=== PATIENT | female | born 1955 | race Caucasian/White ===

== ENCOUNTER 2017-11-21 09:53 | Day surgery (SDC) | payer MEDICARE ==
[~2017-11-21 09:53] MED LIST: AMLODIPINE5 MG PO; ASPIRIN EC325 MG PO; AUGMENTIN875TAB PO; BACLOFEN10 MG PO; EQL POTASSIUM595 MG PO; ETODOLAC500 MG OR; FISH OIL1000 MG OR; GABAPENTIN100 MG PO; GABAPENTIN300 MG PO; GARLIC OR; GINKGO BILOBA500 MG PO; GLIMEPIRIDE2 MG PO; GLUCOSAMINE1 TA1 OR; LIPITOR10 MG PO; LISINOPRIL10 MG PO; LISINOPRIL2.5 MG PO; MECLIZINE25 MG PO; MEDDOSEPAK PO; METFORMIN500 M1 PO; METFORMIN500 MG OR; METFORMIN850 MG PO; METHOCARBAMOL500 MG PO; MULTIVIT/MIN OR; NAPROSYN500 MG PO; NOVOLIN N100 UNIT/1 SC; NOVOLIN R100 UNIT/M SC; OCUVIT1 PO; ONE TOUCH ULTRA 100; OXYCODONE HCL5 MG PO; OXYCODONE5 MG PO; RANITIDINE75 M3 PO; ROPINIROLE0.25 MG OR; ROPINIROLE0.25 MG PO; ROPINIROLE0.5 MG PO; ROPINIROLE2 MG PO; TIZANIDINE4 MG PO; TOUJEO SOL300 UNIT/M SC; TRAMADOL HCL50 MG PO; TURMERIC CURCU500 MG PO; UNKNOWN INSULIN; [UNRECOGNIZED DRUG - CODE] XX; [UNRECOGNIZED DRUG - OTHER]; [UNRECOGNIZED DRUG - OTHER]; [UNRECOGNIZED DRUG - OTHER] PO
[2017-11-21 16:17] VITALS: BP 194/114
== END 2017-11-21 10:55 | disposition home or self-care (01) ==
LOC: ENDO 09:53
PROVIDERS: ATTEND Internal Medicine Gastroenterology
DX: Z01.818 Encounter for other preprocedural examination (principal); R25.2 Cramp and spasm; Z53.8 Procedure and treatment not carried out for other reasons

== ENCOUNTER 2017-11-21 10:54 | Emergency (ER) | payer MEDICARE ==
[~2017-11-21] VITALS: Ht 170.2 cm; Wt 129.0 kg
[2017-11-21 11:32] LABS: HEMATOCRIT 36.6 % (37.0-47.0); HEMOGLOBIN 10.7 g/dl (12.0-16.0); IMMATURE GRANULOCYTES 0.4 % (0.0-1.0); MEAN CELL VOLUME 74.1 fL CALC (80.0-100.0); MEAN CORPUSCULAR HGB 21.7 pG CALC (26.0-32.0); MEAN CORPUSCULAR HGB CONC 29.2 g/L CALC (32.0-36.0); NEUT# 8.84 thou/uL (2.00-7.15); RED BLOOD COUNT 4.94 mill/uL (4.20-5.60); RED CELL DISTRI WIDTH 20.3 % (11.5-15.5)
[2017-11-21 11:48] LABS: ALBUMIN 4.3 g/dL (3.2-5.0); ALKALINE PHOSPHATASE 122 u/l (38-126); ANION GAP 19 (6-22 (CALC)); BILIRUBIN, TOTAL 0.9 mg/dL (0.0-1.4); BUN 8 mg/dL (8-23); BUN/CREATININE RATIO 10 (12-20 (CALC)); CARBON DIOXIDE 27 mmol/l (22-30); CHLORIDE 102 mmol/l (95-108); CREATININE 0.8 mg/dL (0.5-1.0); GFR > 60 ML/MIN (>=60 (CALC)); GFR FOR AFR.AMER. > 60 ML/MIN (>=60 (CALC)); GLUCOSE 124 mg/dL (82-115); POTASSIUM 4.3 mmol/l (3.5-5.1); SGOT/AST 61 u/l (9-36); SGPT/ALT 49 u/l (11-66); SODIUM 143 mmol/l (137-146); TOTAL PROTEIN 7.4 g/dL (6.3-8.2)
[2017-11-21 11:57] LABS: MYOGLOBIN 105 ng/mL (0 - 62)
[2017-11-21 12:39] LABS: URINE BILIRUBIN - DIPSTICK NEGATIVE (NEGATIVE); URINE BLOOD DIPSTICK NEGATIVE (NEGATIVE); URINE COLOR YELLOW; URINE GLUCOSE - DIPSTICK NEGATIVE (NEGATIVE); URINE KETONE 40 mg/dL (NEGATIVE); URINE LEUK ESTERASE NEGATIVE (NEGATIVE); URINE NITRITE - DIPSTICK NEGATIVE (Negative); URINE PH 7.5 (4.5-8.0); URINE PROTEIN - DIPSTICK NEGATIVE (NEG-TRACE); URINE UROBILINOGEN - DIPSTICK 0.2 E.U./dL (0.2)
[2017-11-21 12:43] LABS: URINE CLARITY SL CLOUDY
[2017-11-21 12:44] LABS: BARBITURATES NEGATIVE (NEGATIVE); COCAINE NEGATIVE (NEGATIVE); METHADONE NEGATIVE (NEGATIVE); OXCYCODONE POSITIVE (NEGATIVE); TETRAHYDROCANNABIONOL NEGATIVE (NEGATIVE); TRICYLIC ANTIDEPRESSANTS NEGATIVE (NEGATIVE)
[2017-11-21 12:53] VITALS: BP 148/70
== END 2017-11-21 12:55 | disposition home or self-care (01) ==
LOC: ED 10:54
PROVIDERS: Emergency Medicine
DX: I10 Essential (primary) hypertension (principal); R25.2 Cramp and spasm; R00.0 Tachycardia, unspecified
CPT/HCPCS: J3360

== ENCOUNTER 2018-04-04 01:48 | Emergency (ER) | payer MEDICARE ==
[~2018-04-04] VITALS: Ht 170.2 cm; Wt 129.0 kg
[2018-04-04 02:29] LABS: IMMATURE GRANULOCYTES 0.3 % (0.0-1.0); MEAN CORPUSCULAR HGB 25.9 pG CALC (26.0-32.0); MEAN CORPUSCULAR HGB CONC 31.2 g/L CALC (32.0-36.0); NEUT# 7.21 thou/uL (2.00-7.15); RED BLOOD COUNT 5.18 mill/uL (4.20-5.60); RED CELL DISTRI WIDTH 18.5 % (11.5-15.5)
[2018-04-04 02:30] LABS: HEMOGLOBIN 13.4 g/dl (12.0-16.0)
[2018-04-04 02:40] LABS: ALBUMIN 4.3 g/dL (3.2-5.0); ALKALINE PHOSPHATASE 155 u/l (38-126); AMYLASE 47 u/l (30-110); ANION GAP 16 (6-22 (CALC)); BILIRUBIN, TOTAL 0.8 mg/dL (0.0-1.4); BUN 18 mg/dL (8-23); BUN/CREATININE RATIO 26 (12-20 (CALC)); CARBON DIOXIDE 27 mmol/l (22-30); CHLORIDE 100 mmol/l (95-108); CREATININE 0.7 mg/dL (0.5-1.0); GFR > 60 ML/MIN (>=60 (CALC)); GFR FOR AFR.AMER. > 60 ML/MIN (>=60 (CALC)); LIPASE 80 u/l (23-300); POTASSIUM 4.4 mmol/l (3.5-5.1); SGOT/AST 55 u/l (9-36); SGPT/ALT 76 u/l (11-66); SODIUM 138 mmol/l (137-146); TOTAL PROTEIN 8.6 g/dL (6.3-8.2)
[2018-04-04 04:27] LABS: URINE BILIRUBIN - DIPSTICK NEGATIVE (NEGATIVE); URINE BLOOD DIPSTICK SMALL (NEGATIVE); URINE COLOR YELLOW; URINE GLUCOSE - DIPSTICK 100 mg/dL (NEGATIVE); URINE KETONE TRACE mg/dL (NEGATIVE); URINE LEUK ESTERASE NEGATIVE (NEGATIVE); URINE NITRITE - DIPSTICK NEGATIVE (Negative); URINE PROTEIN - DIPSTICK 30 mg/dL (NEG-TRACE); URINE UROBILINOGEN - DIPSTICK 0.2 E.U./dL (0.2)
[2018-04-04 04:29] LABS: URINE CLARITY TURBID
[2018-04-04 04:31] LABS: BARBITURATES NEGATIVE (NEGATIVE); COCAINE NEGATIVE (NEGATIVE); METHADONE NEGATIVE (NEGATIVE); OXCYCODONE POSITIVE (NEGATIVE); TETRAHYDROCANNABIONOL NEGATIVE (NEGATIVE); TRICYLIC ANTIDEPRESSANTS NEGATIVE (NEGATIVE); URINE AMORPH SEDIMENT MANY hpf (NONE-FEW); URINE BACTERIA FEW hpf; URINE MUCUS FEW hpf (NONE-FEW); URINE RBC 0-2 RBC/hpf (0-5); URINE SQUAMOUS EPITHELIAL CELL MANY EPI/hpf (0-FEW); URINE WBC 0-2 WBC/hpf (0-5)
[2018-04-04] MEDS ORDERED: AMITRIPTYLIN25 MG PO (05:29)
[2018-04-04 05:30] VITALS: BP 200/94
== END 2018-04-04 05:30 | disposition short-term general hospital (02) ==
LOC: ED 01:48
PROVIDERS: Family Medicine
DX: K43.6 Other and unspecified ventral hernia with obstruction, without gangrene (principal); R11.0 Nausea; R10.33 Periumbilical pain; I10 Essential (primary) hypertension; E11.9 Type 2 diabetes mellitus without complications; Z79.4 Long term (current) use of insulin; M79.7 Fibromyalgia
CPT/HCPCS: J2060; Q9967

== ENCOUNTER 2019-06-15 06:41 | Day surgery (SDC) | payer MEDICARE ==
[~2019-06-15] VITALS: Ht 170.2 cm; Wt 114.8 kg
[~2019-06-15 06:41] MED LIST changes: +AMITRIPTYLIN25 MG PO; +CYCLOBENZAPR10 MG PO
[2019-06-15 09:16] VITALS: BP 136/70
== END 2019-06-15 09:45 | disposition home or self-care (01) ==
LOC: ENDO 06:41
PROVIDERS: ATTEND Surgery
PROC: 0DBK8ZX Excision of Ascending Colon, Via Natural or Artificial Opening Endoscopic, Diagnostic (ICD-10-PCS; principal; 2019-06-15)
PROC: 0DBL8ZX Excision of Transverse Colon, Via Natural or Artificial Opening Endoscopic, Diagnostic (ICD-10-PCS; 2019-06-15)
PROC: 0DBN8ZX Excision of Sigmoid Colon, Via Natural or Artificial Opening Endoscopic, Diagnostic (ICD-10-PCS; 2019-06-15)
DX: Z12.11 Encounter for screening for malignant neoplasm of colon (principal); D12.2 Benign neoplasm of ascending colon; D12.3 Benign neoplasm of transverse colon; K63.5 Polyp of colon; I10 Essential (primary) hypertension; E11.9 Type 2 diabetes mellitus without complications; F17.210 Nicotine dependence, cigarettes, uncomplicated; Z79.4 Long term (current) use of insulin

== ENCOUNTER 2019-09-20 00:25 | Observation (INO) | payer MEDICARE ==
[~2019-09-20] VITALS: Ht 170.2 cm; Wt 125.6 kg
--- NOTE | 2019-09-20 00:25 | NUR ---
PER EMS PT CALLS THEM WHEN SHE NEEDS ASSIST TO HER CHAIR OR BED.NO FOCALWEAKNESSES SPEECH IS CLEAR NO MEMORY DEFICITS PT IS MORBIDLY OBESE.BERY POOR HYGIENE FEET ARE DIRTY.
--- NOTE | 2019-09-20 00:25 | NUR ---
PT TO ROOM 13 BY EMS.
[2019-09-20 00:51] LABS: HEMATOCRIT 38.5 % (37.0-47.0); HEMOGLOBIN 11.9 g/dl (12.0-16.0); IMMATURE GRANULOCYTES 0.5 % (0.0-5.0); MEAN CORPUSCULAR HGB 28.1 pG CALC (26.0-32.0); MEAN CORPUSCULAR HGB CONC 30.9 g/L CALC (32.0-36.0); NEUT# 5.46 thou/uL (2.00-7.15); RED BLOOD COUNT 4.24 mill/uL (4.20-5.60); RED CELL DISTRI WIDTH 15.3 % (11.5-15.5)
[2019-09-20 00:53] LABS: MEAN CELL VOLUME 90.8 fL CALC (80.0-100.0)
[2019-09-20 01:08] LABS: ALBUMIN 3.7 g/dL (3.2-5.0); ALKALINE PHOSPHATASE 104 u/l (38-126); ANION GAP 13 (6-22 (CALC)); BUN 20 mg/dL (8-23); BUN/CREATININE RATIO 19 (12-20 (CALC)); CARBON DIOXIDE 25 mmol/l (22-30); CHLORIDE 108 mmol/l (95-108); CPK 57 u/l (30-165); GFR 56 ML/MIN (>=60 (CALC)); GFR FOR AFR.AMER. > 60 ML/MIN (>=60 (CALC)); MAGNESIUM 1.9 mg/dL (1.6-2.3); SGOT/AST 45 u/l (9-36); SODIUM 142 mmol/l (137-146)
[2019-09-20 01:10] LABS: BILIRUBIN, TOTAL 0.4 mg/dL (0.0-1.4); TOTAL PROTEIN 6.8 g/dL (6.3-8.2)
[2019-09-20 01:40] LABS: TSH, 3RD GENERATION 2.01 uIU/mL (0.47 - 4.68)
--- NOTE | 2019-09-20 01:47 | NUR ---
AWAKENED FROM SLEEP NO FOCAL DEFICITS.SPEECH IS CLEAR [facility] IS 15
--- NOTE | 2019-09-20 02:26 | NUR ---
14F ESPINOSA CATHETER INSERTED WITH ASSISTANCE OF ELVA GIL. PT SLEPT THRU THE ENTIRE PROCEDURE. WOKE PT AND ASKED IF SHE TAKES PAIN MEDICATION, PT STATED GABAPENTIN AND ANOTHER MEDICATION I COULD NOT UNDERSTAND. PT'S PERIAREA HAS A POTENT UNPLEASANT ODOR.
[2019-09-20 02:31] LABS: URINE BILIRUBIN - DIPSTICK NEGATIVE (NEGATIVE); URINE BLOOD DIPSTICK NEGATIVE (NEGATIVE); URINE COLOR YELLOW; URINE GLUCOSE - DIPSTICK NEGATIVE (NEGATIVE); URINE KETONE NEGATIVE (NEGATIVE); URINE LEUK ESTERASE NEGATIVE (NEGATIVE); URINE NITRITE - DIPSTICK NEGATIVE (Negative); URINE PROTEIN - DIPSTICK NEGATIVE (NEG-TRACE); URINE SPECIFIC GRAVITY >=1.030; URINE UROBILINOGEN - DIPSTICK 0.2 E.U./dL (0.2)
[2019-09-20 02:35] LABS: COCAINE NEGATIVE (NEGATIVE); METHADONE NEGATIVE (NEGATIVE); TETRAHYDROCANNABIONOL NEGATIVE (NEGATIVE)
[2019-09-20 02:36] LABS: BARBITURATES NEGATIVE (NEGATIVE); OXCYCODONE NEGATIVE (NEGATIVE); TRICYLIC ANTIDEPRESSANTS POSITIVE (NEGATIVE)
--- NOTE | 2019-09-20 03:31 | NUR ---
ASLEEP APPARENTLY COMFORTABLY.W/P/D SKIN SR NO ECTOPY
--- NOTE | 2019-09-20 04:07 | NUR ---
ASLEEP.W/P/D SKIN SR WITHOUT ECTOPY.
--- NOTE | 2019-09-20 04:10 | NUR ---
PHONE REPORT TO NURSE NUÑEZ ON MS2
--- NOTE | 2019-09-20 04:15 | NUR ---
PT TRANSPORTED TO IN VIA STRETCHER IN STABLE CONDITION
[2019-09-20 04:30] VITALS: BP 113/65
--- NOTE | 2019-09-20 04:30 | NUR ---
RECEIVED REPORT FROM ED NURSE AG, PATIENT TRANSPORTED VIA BED, ASSISTED IN BED USING 4 PERSON ASSIST, WITH O2 @ 2LPM VIA NC, NOTED TO HAVE NON PRODUCTIVE COUGH, COARSE ON ALL LUNG FIELD, LBM 09/19, NOTED TO HAVE SCATTERED BRUISES ON BILATERAL LOWER LEGS, AND BRUISING ON ABDOMEN, AND LEFT ANTERIOR SHOULDER, SKIN TEAR ON LEFT PINKY CLEANED WITH SALINE AND COVERED WITH BAND AID, ABRASIONS ON BOTH KNEE, AND WITH ESPINOSA F16 DRAINING SHELLI COLORED URINE INSERTED ON 09/20 AT ED, CALL LIGHT AT REACH.
--- NOTE | 2019-09-20 05:52 | NUR ---
CALLED ED DOCTOR KENNETH PATIENT STILL C/O CRAMPING PAIN ON LEFT LEG, APPLIED WARM COMPRESS, WITH ORDERS MADE SENT TO PHARMACY.
--- NOTE | 2019-09-20 07:30 | NUR ---
REPORT RECEIVED FROM ELVA ROMO. PT. ALERT AND ORIENTED, BUT FORGETFUL. CALLING OUT REPEATEDLY REGARDING VARIOUS THINGS, "I NEED TO PEE", "I HAVE A LEG CRAMP" "IS ANYONE THERE?". PT REMINDED OF ESPINOSA CATHETER. ESPINOSA DRAINAGE BLOOD THINGED, PT INSTRUCTED NOT TO TUG ON OR REMOVE ESPINOSA CATHETER. FALL PRECAUTIONS REINFORCED. MOIST COUGH NOTED, LUNGS SOUND CLEAR. O2 @ 2L VIA NC. SCATTERED ABRASIONS AND BRUISING TO ALL EXTREMITIES, NOTHING OPEN. CALL LIGHT REVIEWED AND IN REACH. PLAN OF CARE REVIEWED.
[2019-09-20 08:00] VITALS: BP 148/91
[2019-09-20 12:28] LABS: MAGNESIUM 1.9 mg/dL (1.6-2.3)
[2019-09-20 15:21] VITALS: BP 185/79
--- NOTE | 2019-09-20 18:24 | NUR ---
Discharge instructions given. Patient verbalizes understanding of same. Discharged in stable condition via Wheelchair to Home with friend. All belongings sent with pt.
[2019-09-21] MEDS ORDERED: AMITRIPTYLIN25 MG PO (09:11)
[2019-09-21] MEDS ORDERED: GINKGO BILOBA500 MG PO (09:25)
[2019-09-21] MEDS ORDERED: MULTIVITAMI1 PO (09:25)
== END 2019-09-20 18:25 | disposition home or self-care (01) ==
LOC: ED 00:25 → ED-I 03:50 → ED 04:05 → MS2 04:06
PROVIDERS: Family Medicine; Nurse Practitioner Family; ADMIT Internal Medicine; ATTEND Internal Medicine
PROC: 0T9B70Z Drainage of Bladder with Drainage Device, Via Natural or Artificial Opening (ICD-10-PCS; principal; 2019-09-20)
DX: M79.605 Pain in left leg (principal); M79.604 Pain in right leg; M62.81 Muscle weakness (generalized); I10 Essential (primary) hypertension; E11.40 Type 2 diabetes mellitus with diabetic neuropathy, unspecified; G89.4 Chronic pain syndrome; S80.02XA Contusion of left knee, initial encounter; S80.01XA Contusion of right knee, initial encounter; S40.021A Contusion of right upper arm, initial encounter; S40.022A Contusion of left upper arm, initial encounter; F17.200 Nicotine dependence, unspecified, uncomplicated; E66.01 Morbid (severe) obesity due to excess calories; W19.XXXA Unspecified fall, initial encounter; Z68.41 Body mass index [BMI] 40.0-44.9, adult; Z79.4 Long term (current) use of insulin; Z91.81 History of falling
CPT/HCPCS: J1650

== ENCOUNTER 2019-09-20 19:50 | Inpatient (IN) | payer MEDICARE ==
[~2019-09-20] VITALS: Ht 170.2 cm; Wt 113.6 kg
--- NOTE | 2019-09-20 19:50 | NUR ---
Pt to room # 6 via EMS stretcher
--- NOTE | 2019-09-20 19:51 | NUR ---
PT. TO ROOM 6 VIA EMS WITH C/O BEING UNABLE TO STAND TO RETURN TO HER HOME. PT. TES, " MY ARMS DON'T WORK OR MY LEGS."
--- NOTE | 2019-09-20 20:51 | NUR ---
RESTING ON STRETCHER, NO C/O AT THIS TIME.
[2019-09-20 21:20] LABS: HEMATOCRIT 40.3 % (37.0-47.0); HEMOGLOBIN 12.5 g/dl (12.0-16.0); IMMATURE GRANULOCYTES 0.4 % (0.0-5.0); MEAN CELL VOLUME 89.4 fL CALC (80.0-100.0); MEAN CORPUSCULAR HGB 27.7 pG CALC (26.0-32.0); NEUT# 4.9 thou/uL (2.00-7.15); RED BLOOD COUNT 4.51 mill/uL (4.20-5.60); RED CELL DISTRI WIDTH 15.1 % (11.5-15.5)
[2019-09-20 21:32] LABS: ALKALINE PHOSPHATASE 101 u/l (38-126); ANION GAP 13 (6-22 (CALC)); BILIRUBIN, TOTAL 0.5 mg/dL (0.0-1.4); BUN 18 mg/dL (8-23); BUN/CREATININE RATIO 16 (12-20 (CALC)); CARBON DIOXIDE 25 mmol/l (22-30); CHLORIDE 105 mmol/l (95-108); CREATININE 1.1 mg/dL (0.5-1.0); GFR 50 ML/MIN (>=60 (CALC)); GFR FOR AFR.AMER. 60 ML/MIN (>=60 (CALC)); LIPASE 33 u/l (23-300); MAGNESIUM 1.9 mg/dL (1.6-2.3); POTASSIUM 4.2 mmol/l (3.5-5.1); SGOT/AST 38 u/l (9-36); SODIUM 138 mmol/l (137-146); TOTAL PROTEIN 7.4 g/dL (6.3-8.2)
--- NOTE | 2019-09-20 21:32 | NUR ---
IV PAIN MED GIVEN PER MD ORDER.
[2019-09-20 22:28] LABS: URINE BILIRUBIN - DIPSTICK NEGATIVE (NEGATIVE); URINE BLOOD DIPSTICK LARGE (NEGATIVE); URINE COLOR YELLOW; URINE GLUCOSE - DIPSTICK NEGATIVE (NEGATIVE); URINE KETONE NEGATIVE (NEGATIVE); URINE NITRITE - DIPSTICK NEGATIVE (Negative); URINE PROTEIN - DIPSTICK NEGATIVE (NEG-TRACE); URINE UROBILINOGEN - DIPSTICK 0.2 E.U./dL (0.2)
--- NOTE | 2019-09-20 22:32 | NUR ---
PT. PLACED ON BP VOIDED QS SHELLI URINE.
[2019-09-20 22:35] LABS: URINE LEUK ESTERASE TRACE (NEGATIVE); URINE RBC 25-50 RBC/hpf (0-5); URINE WBC 0-2 WBC/hpf (0-5)
[2019-09-20 22:36] LABS: BARBITURATES NEGATIVE (NEGATIVE); COCAINE NEGATIVE (NEGATIVE); METHADONE NEGATIVE (NEGATIVE); OXCYCODONE NEGATIVE (NEGATIVE); TETRAHYDROCANNABIONOL NEGATIVE (NEGATIVE); TRICYLIC ANTIDEPRESSANTS POSITIVE (NEGATIVE)
--- NOTE | 2019-09-20 22:40 | NUR ---
RECEIVED REPORT FROM NURSE BETTY PATIENT TRANSPORTED VIA BED, TRANSFERRED TO BED, ORIENTED TO ROOM AND CALL LIGHT SYSTEM.
--- NOTE | 2019-09-20 23:30 | NUR ---
PT. STATES HER LEFT SHOULDER PAIN IS NOW DECREASED TO A 6 ON A SCALE OF 1-10.
--- NOTE | 2019-09-20 23:46 | NUR ---
UNABLE TO OBTAIN EKG, PT. WILL NOT LIE STILL. AWARE.
--- NOTE | 2019-09-21 | NUR ---
PLACED PUREWICK AT THIS TIME R/T PATIENT COMPLAINING OF LEG CRAMP AND PAIN ON RT LEG AND UNABLE TO BED WEIGHT AT THIS TIME.
--- NOTE | 2019-09-21 | NUR ---
Admission Note Report Given to: TAN STEVENSON Transported by: Wheelchair X Stretcher Transported with: X Nurse Transporter X Patent IV O2 Rayon Coner
--- NOTE | 2019-09-21 00:02 | NUR ---
PT. TAKEN TO MS FLOOR VIA W/C, C/O LEG CRAMPS. AWARE.
[2019-09-21 01:23] VITALS: BP 168/82
[2019-09-21 04:25] VITALS: BP 186/90
--- NOTE | 2019-09-21 04:32 | NUR ---
CALLED DR. STEARNS AND CLARIFIED ORDER FOR ROPINIROLE WITH ORDERS MADE FAX TO PHARMACY.
[2019-09-21 04:44] VITALS: BP 156/84
[2019-09-21 08:00] VITALS: BP 175/91
--- NOTE | 2019-09-21 08:00 | NUR ---
PT IS A&O X 3. PT HAS CRAMPING TO BLE, CRYING OUT LOUD WHEN THEY COME. PT WITH PURWICK IN PLACE, AWARE THAT SHE MUST NOT ATTEMPT AMBULATION.
[2019-09-21] MEDS ORDERED: AMITRIPTYLIN25 MG PO (09:11)
[2019-09-21] MEDS ORDERED: MULTIVITAMI1 PO (09:25)
[2019-09-21] MEDS ORDERED: GINKGO BILOBA500 MG PO (09:25)
--- NOTE | 2019-09-21 12:00 | NUR ---
PT WITH MOVEMENTS ALL OVER BED, CRAMPING LEGS. MEDS PROVIDED POSSIBLE, BUT NONE PROVIDE ANY SIGNIFICANT RELIEF.
--- NOTE | 2019-09-21 15:02 | NUR ---
Patient is seen for bed mobilityand transfer training. She has a [employer] on the left from [facility] about 1 year ago. She tells me that she is an independent in room ambulator at baseline but has been unable to get herself up and down without assist. She is mod max assist of 1 for supine to sit and is unable to fully stand with her walker Am Pac raw score is 8 indicating she would do well in rehab to work on fall prevention and ambulation as well as safety. She has bruising on her right episcopal and right knee from old falls
[2019-09-21 15:42] VITALS: BP 179/74
--- NOTE | 2019-09-21 18:00 | NUR ---
PT SEEN BY DR GOMES TODAY, MAY NEED REHAB PRIOR TO RETURNING HOME. PT AGREEABLE. NO DISTRESS NOTED, PT VISITED BY HER COUSIN, WHO LIVES WITH HER.
--- NOTE | 2019-09-21 19:30 | NUR ---
ASSESSMENT COMPLETED. A/A/OX3. PT. HAS PUREWIC IN PLACE AND CANISTER FULL OF CLEAR YELLOW URINE AND EMPTIED. PT. DENIES NEEDS/PAIN AT THIS TIME. UPDATED ON POC. IV SITE PATENT AND ORDERED IVF INFUSING WELL WITHOUT DIFFICULTIES. DARKENED AREAS NOTED TO ABDOMINAL FOLD, NO OPEN AREAS NOTED. BRUISING ALSO NOTED TO ABDOMEN. PO FLUIDS OFFERED. ENCOURAGED TO CALL FOR ANY NEEDS. CALL LIGHT IS IN REACH. WILL CONTINUE TO MONITOR.
--- NOTE | 2019-09-21 20:55 | NUR ---
SCHED MED GIVEN AND PT. DENIES NEEDS/PAIN. ENCOURAGED TO CALL FOR ANY NEEDS. INSTRUCTED TO CALL FOR ALL OOB NEEDS AND IS TO NOT GET OOB ALONE. VERBALIZES UNDERSTANDING. CALL LIGHT IS IN REACH.
[2019-09-21 21:23] VITALS: BP 150/74
--- NOTE | 2019-09-21 23:24 | NUR ---
PT. C/O RESTLESS LEGS AND MEDICATED WITH ORDERED ROPINEROLE, WILL REASSESS. DENIES FURTHER NEEDS. CALL LIGHT IS IN REACH.
--- NOTE | 2019-09-22 02:00 | NUR ---
PT. RESTING IN BED WITH EYES CLOSED; RESP. EVEN AND UNLABORED. CALL LIGHT IS IN REACH. WILL CONTINUE TO MONITOR.
--- NOTE | 2019-09-22 03:39 | NUR ---
PT. C/O RESTLESS LEGS AND PAIN 10/10 TO BLE AND MEDICATED WITH ORDERED PRN MORPHINE, WILL REASSESSS. DENIES FURTHER NEEDS. CALL LIGHT IS IN REACH. WILL CONTINUE TO MONITOR.
[2019-09-22 03:40] VITALS: BP 151/77
--- NOTE | 2019-09-22 05:07 | NUR ---
PT. CONTINUES TO C/O RESTLESS LEG WITH CRAMPING PAIN AND MEDICATED WITH ORDERED PRN TYLENOL AND ROPINEROLE, WILL REASSESS. PO FLUIDS OFFERED. CALL LIGHT IS IN REACH.
[2019-09-22 08:00] VITALS: BP 136/68
--- NOTE | 2019-09-22 08:00 | NUR ---
PT SEEN AWAKE, ALERT, ORIENTED X 3, RESTING IN THE BED THIS MORNING. SHE HAS HAD FEW MUSCLE CRAMPS TODAY. SHE IS STILL RESTLESS IN THE BED. LUNGS CLEAR,RA. NO DISTRESS.
[2019-09-22 11:36] LABS: ANION GAP 11 (6-22 (CALC)); BUN 12 mg/dL (8-23); BUN/CREATININE RATIO 16 (12-20 (CALC)); CARBON DIOXIDE 24 mmol/l (22-30); CHLORIDE 106 mmol/l (95-108); CREATININE 0.8 mg/dL (0.5-1.0); GFR > 60 ML/MIN (>=60 (CALC)); GFR FOR AFR.AMER. > 60 ML/MIN (>=60 (CALC)); POTASSIUM 4.1 mmol/l (3.5-5.1); SODIUM 137 mmol/l (137-146)
--- NOTE | 2019-09-22 12:00 | NUR ---
IV FOUND DISLODGED IN BED WITH PT. PER STEPHANIE, NO RESTART NEEDED. PT REMAINS WITH FEWER MUSCLE CRAMPS. PT IS COMPLIANT WITH STAYING IN THE BED, NO ATTEMPTS MADE TO GET OOB.
--- NOTE | 2019-09-22 16:00 | NUR ---
Entered patient room and pt. was in supine position. Pt. agreed to participate in therapy session. Ther activities was focus of treatment. Supine to sit (MOD A) sit to supine (MAX A) VC for proper safety techniques as she ascends to a standing position. Static standing w/ weight shifting w/ use of FWW, (MAX A) pt. was able to execute 5 seconds, executed sit/stand x 5 times. Pt. complained of pain, DC exercises. deescended to a seated position VC for proper hand placement. Sit to supine (MAX A) tray table and call castillo by pt. side. [facility] 6 score 07/20.
--- NOTE | 2019-09-22 19:40 | NUR ---
ASSESSMENT COMPLETED; NO RESP.DISTRESS NOTED. PT. IS INTERMITTENTLY RESTLESS. PT. IS INCONTINENT OF LARGE AMOUNT OF URINE AND PUREWIC IS AT BEDSIDE. LEA CARE GIVEN AND NEW GOWN APPLIED. UPDATED WITH POC AND VERBALIZES UNDERSTANDING. ENCOURAGED TO CALL FOR ANY NEEDS. CALL LIGHT IS IN REACH.
[2019-09-22 19:50] VITALS: BP 154/69
--- NOTE | 2019-09-22 21:28 | NUR ---
PT. C/O RESTLESS LEGS AND MEDICATED WITH ORDERED REQUIP ALONG WITH OTHER SCHED MEDS. NO IV SITE AND MD IS AWARE, ORDER ON CHART. ICE CHIPS PROVIDED. CALL LIGHT IS IN REACH.
--- NOTE | 2019-09-23 00:50 | NUR ---
RESTING IN BED WITH EYES CLOSED; RESP. EVEN AND UNLABORED. CALL LIGHT IS IN REACH.
--- NOTE | 2019-09-23 03:12 | NUR ---
RESTING IN BED WITH EYES CLOSED; RESP. EVEN AND UNLABORED. CALL LIGHT IS IN REACH.
--- NOTE | 2019-09-23 05:18 | NUR ---
PT. RESTING IN BED WITH EYES CLOSED, RESP. EVEN AND UNLABORED. NO DISTRESS NOTED. FRESH ICE CHIPS PROVIDED AT BEDSIDE. WILL CONTINUE TO MONITOR.
[2019-09-23 06:07] VITALS: BP 132/80
[2019-09-23 07:29] VITALS: BP 129/83
--- NOTE | 2019-09-23 07:29 | NUR ---
PT RESTING IN BED, NO SIGNS OF DISTRESS NOTED, RESP EVEN AND UNLABORED. PT ALERT AND ORIENTED X3, DISCUSSED POC, PT VERBALIZED UNDERSTANDING. PUREWICK IN PLACE. ASSESSMENT COMPLETED, CALL LIGHT IN REACH,CONTINUE TO MONITOR.
--- NOTE | 2019-09-23 08:17 | NUR ---
She is seen today for funcitonal training. She is able to move in the bed independently when given time. She is able to perform SPT independently when given time. She demonstrated ability to stand independently with walker but is unable to ambulate. I have a feeling she has not ambulated for a long time although she tells me she was able to ambulate 10-20 feet at baseline. Am Pac score is 10 and should improve. She would do well to go to [facility] for additional rehab if agreed to by medical
--- NOTE | 2019-09-23 10:14 | NUR ---
PT SITTING IN RECLINER AT BEDSIDE, PT ASSISTED BY PHYSICAL THERAPY. CALL LIGHT IN REACH,CONTINUE TO MONITOR.
--- NOTE | 2019-09-23 12:00 | NUR ---
PT SITTING IN RECLINER AT BEDSIDE, VISITOR AT BEDSIDE EATING LUNCH WITH PT. CALL LIGHT IN REACH,CONTINUE TO MONITOR.
--- NOTE | 2019-09-23 14:48 | NUR ---
PT ASSISTED BACK TO BED X4 ASSIST. PERICARE PROVIDED AND NEW PUREWICK APPLIED. URINE IS DARK/CLOUDY/FOUL SMELLING. CALL LIGHT IN REACH,CONTINUE TO MONITOR.
[2019-09-23 15:23] VITALS: BP 135/77
--- NOTE | 2019-09-23 16:01 | NUR ---
PT RESTING IN BED, NO SIGNS OF DISTRESS NOTED, RESP EVEN AND UNLABORED. CALL LIGHT IN REACH,CONTINUE TO MONITOR.
--- NOTE | 2019-09-23 17:40 | NUR ---
REPOSITIONED PT IN BED, CALL LIGHT IN REACH,CONTINUE TO MONITOR.
--- NOTE | 2019-09-23 19:00 | NUR ---
RECEIVED REPORT FR NURSE DAVIN, PATIENT APPEARS TO BE SLEPPING WITH EYE CLOSED, NO DISCOMFORTS NOTED AT THIS TIME, CALL LIGHT AT REACH.
[2019-09-23 19:01] VITALS: BP 141/82
--- NOTE | 2019-09-23 20:00 | NUR ---
PATIENT APPEARS TO BE SLEEPING WITH EYES CLOSED WITH EYES CLOSED NO DISCOMFORTS NOTED AT THIS TIME, HOOKED TO PUREWICK CONNECTED TO SUCTION MACHINE, CALL LIGHT AT REACH.
--- NOTE | 2019-09-24 02:00 | NUR ---
PATIENT AWAKE AT THIS TIME, PERICARE PROVIDED, PUREWICK CHANGED, PATIENT REPOSITIONED.
[2019-09-24 05:09] VITALS: BP 136/85
--- NOTE | 2019-09-24 06:23 | NUR ---
PATIENT C/O INDIGESTION AND GAS PAIN, CALLED DR. SPENCER, WITH ORDERS MADE PHARMACY AWARE.
[2019-09-24 06:47] VITALS: BP 140/74
--- NOTE | 2019-09-24 07:42 | NUR ---
PATIENT WAS C/O INDIGESTION, CUSSING AND YELLING AT STAFF, AND PATIENT WAS HOLDING CHEST V/S TAKEN FOLLWS: bp 140/74 P 100 R 22, POX 94% RA, AND INFORMED THAT EKG WAS BEING DONE, AND WAS ALSO INFORMED THAT PATIENT DR. FRANCISCO ADDED A STAT TROPONIN AND TO CONTINUE TO MONITOR.
--- NOTE | 2019-09-24 07:50 | NUR ---
PT C/O LEFT SIDE PAIN IN THE RIB CAGE. PT HAD RECEIVED MAALOX FROM TREE SAPPER NURSE. ATTEMPTED TO GIVE HER PRUNE JUICE PT REFUSED. EXPLAINED THAT SHE CAN'T BE HOLLERING OUT, WE HAVE OTHER PTS ON THE UNIT. PT STATED" I AM IN SO MUCH PAIN" STAFF ASSISTED TO GET PT HIGHER IN THE BED AND PT BEGAN TO BELCH MANY TIMES.
--- NOTE | 2019-09-24 08:10 | NUR ---
PT CONTINUES TO C/O LEFT PAIN, WANTS HER TUMS, EXPLAINED THAT THE PHARMACY HAS THE MEDS AND WE HAVE TO WAIT FOR THE DR TO COME AND ORDER. GAVE AM DOSES FOR THE BLOOD SUGAR OF 228 AND ALSO TYLENOL TO EASE THE PAIN PT STATES" THIS ISN'T GOING TO WORK".
[2019-09-24 09:10] VITALS: BP 146/81
--- NOTE | 2019-09-24 09:10 | NUR ---
ASSESSMENT IS COMPLETED: IV SITE IS FREE FROM REDNESS OR EDEMA. HR IS REG,PULSES ARE STRONG X4, ABD IS DISTENDED AND SOFT WITH ACTIVE BS. BREATH SOUNDS ARE CLEAR,BILATERALLY. PT C/O LEFT SIDE PAIN "(FEELS LIKE A KNIFE IS BEING MOVED AROUND IN MY BELLY)"
--- NOTE | 2019-09-24 09:26 | NUR ---
Miss King refused therapy this morning due to increasing pain.
--- NOTE | 2019-09-24 09:30 | NUR ---
PT IS DRY HEAVING AT THIS MOMENT INQUIRED IF ITS OK
--- NOTE | 2019-09-24 10:00 | NUR ---
PT CONTINUES TO C/O LEFT SIDE PAIN, AND NAUSEA, UNABLE TO GIVE MEDICATION, FOR NAUSEA DUE TO NO IV ACCESS, PT WANTS TO SIT ON THE SIDE OF THE BED , TO LEAN OVER AND THEN TRY TO VOMIT TO MAKE HER FEEL BETTER. WHEN PT ATTEMPTED TO MOVE ON HER SIDE STATES" I CAN'T DO IT. NEVER MIND I WILL MOVE MY HEAD TO THE SIDE AND THEN TRY TO VOMIT". OFFERED HER THE EMESIS BAG INSTEAD OF THE BASIN PT NOT WANTING IT, STATES" IT DOESN'T HELP I JUST VOMIT EVERY WHERE ANY WAY." WILL CHECK ON PT , ATTEMPTING TO HAVE A BM.
--- NOTE | 2019-09-24 10:56 | NUR ---
PT CONTINUES TO C/O PAIN IN LEFT SIDE. HAD A LARGE BM ON BEDPAN. INCONTINENCE OF URINE. HAS THE PUREWICK IN PLACE. EXPLAINED ABOUT THE NEED TO CLEAN HER UP AND CHANGE THE BED DUE TO BEING WET. PT NOT WANTING TO GET CHANGED, EXPLAINED THE IMPORTANCE OF THE CHANGE TO PREVENT BEDSORES. VERBALIZED UNDERSTANDING.
--- NOTE | 2019-09-24 12:40 | NUR ---
PT IS RELAXING IN BED WITH NO DISTRESS NTOED. IV SITE IS FREE FROM REDNESS OR EDEMA.
--- NOTE | 2019-09-24 12:55 | NUR ---
PT HAS LARGE AMOUNT OF EMESIS DARK BROWN IN COLOR.
--- NOTE | 2019-09-24 13:00 | NUR ---
REPORTED TO STEPHANIE KESSLER AND MEDICATION FOR NAUSEA WAS ORDERED WAITING FOR PHARMACY
--- NOTE | 2019-09-24 14:00 | NUR ---
NAUSEA MEDICATION WAS GIVEN AND PT TOLERATED WELL.,
--- NOTE | 2019-09-24 14:34 | NUR ---
PT CONTINUES TO VOMIT BROWN LIQUID.
[2019-09-24 15:25] VITALS: BP 182/98
--- NOTE | 2019-09-24 16:40 | NUR ---
PT IS RELAXING IN BED WITH NO DISTRESS NOTED.
[2019-09-24 19:10] VITALS: BP 176/95
--- NOTE | 2019-09-24 19:43 | NUR ---
PT SITTING ON SIDE OF THE BED. DAY NURSE IS MEDICATING PT AT THIS TIME FOR N/V. PT IS LEANING HEAD OVER THE BED TO VOMIT. I DISCUSSED SAFETY W/PT AND PROVIDED HER AN EMESIS BAG. SHE REFUSED BAG, TOLD TRANSPLANTER TO MOT LECTURE HER, I EXPRESSED CONCERNS ABOUT HER FALLING OFF THE BED, SHE STATED HER AGE AND STATED, "I WON'T HAVE YOU LECTURING ME, I KNOW WHAT I NEED." BLANKET AND BIN PROVIDED ON SIDE OF THE BED FOR EMESIS.
--- NOTE | 2019-09-24 21:53 | NUR ---
PT CLEANED OF INCONTINENT URINE/PROVIDED BED BATH. PT MEDICATED ORDERS PROVIDE. PT LEFT W/LIGHTS AND TV ON. CALL LIGHT AT BEDSIDE.
[2019-09-24 23:05] VITALS: BP 157/87
--- NOTE | 2019-09-25 02:16 | NUR ---
PT MEDICATED FOR RESTLESS "JUMPY LEGS" REPORTED BY PT. PT ASSISTED ON BEDPAN AND CLEANED OF INCONTINENT URINE AND STOOL. PT REFUSING A GOWN OR SHEET. ROOM COOLED MUCH POSSIBLE. PT IS EATING ICE, 100CC OF DARK BROWN EMESIS OUTPUT SO FAR MY SHIFT. NO IV SITE AT THIS TIME.
[2019-09-25 03:45] VITALS: BP 160/83
[2019-09-25 05:15] LABS: HEMATOCRIT 41.8 % (37.0-47.0); HEMOGLOBIN 13.2 g/dl (12.0-16.0); IMMATURE GRANULOCYTES 0.4 % (0.0-5.0); MEAN CELL VOLUME 89.3 fL CALC (80.0-100.0); MEAN CORPUSCULAR HGB 28.2 pG CALC (26.0-32.0); MEAN CORPUSCULAR HGB CONC 31.6 g/L CALC (32.0-36.0); NEUT# 12.98 thou/uL (2.00-7.15); RED BLOOD COUNT 4.68 mill/uL (4.20-5.60); RED CELL DISTRI WIDTH 15.1 % (11.5-15.5)
[2019-09-25 05:33] LABS: ANION GAP 15 (6-22 (CALC)); BUN 23 mg/dL (8-23); BUN/CREATININE RATIO 34 (12-20 (CALC)); CARBON DIOXIDE 28 mmol/l (22-30); CHLORIDE 99 mmol/l (95-108); CREATININE 0.7 mg/dL (0.5-1.0); GFR > 60 ML/MIN (>=60 (CALC)); GFR FOR AFR.AMER. > 60 ML/MIN (>=60 (CALC)); MAGNESIUM 2.1 mg/dL (1.6-2.3); POTASSIUM 4.1 mmol/l (3.5-5.1); SODIUM 139 mmol/l (137-146)
[2019-09-25 08:00] VITALS: BP 132/71
--- NOTE | 2019-09-25 08:00 | NUR ---
PT IS AWAKE, ALERT, TALKATIVE, PERHAPS A BIT CONFUSED. LUNGS CLEAR, RA. PT IS INCONTINENT OF URINE AT TIMES, SAYING THAT SHE IS AWARE THAT SHE NEEDS TO VOID ONLY SHE IS ALREADY VOIDING. NO IV SITE. SKIN HAS ECCHYMOTIC AREAS, LEFT FOOT AND UPPER ARM, FLANK, WHICH ARE HEALING. NO REPORT OF PAIN, NO EVIDENCE OF DISTRESS.
--- NOTE | 2019-09-25 12:00 | NUR ---
PT ABLE TO PROVIDE URINE SPECIMEN ON BEDPAN, MINIMAL AMOUNT. CHEST XRAY DONE. PT REMAINS BEFORE, IN THE BED, NO DISTRESS.
[2019-09-25 14:04] LABS: URINE BILIRUBIN - DIPSTICK NEGATIVE (NEGATIVE); URINE BLOOD DIPSTICK TRACE-LYSED (NEGATIVE); URINE COLOR YELLOW; URINE GLUCOSE - DIPSTICK NEGATIVE (NEGATIVE); URINE KETONE NEGATIVE (NEGATIVE); URINE LEUK ESTERASE MODERATE (NEGATIVE); URINE NITRITE - DIPSTICK POSITIVE (Negative); URINE PH 7.5 (4.5-8.0); URINE PROTEIN - DIPSTICK 30 mg/dL (NEG-TRACE); URINE UROBILINOGEN - DIPSTICK 0.2 E.U./dL (0.2)
[2019-09-25 14:11] LABS: URINE BACTERIA MANY hpf; URINE SQUAMOUS EPITHELIAL CELL FEW EPI/hpf (0-FEW); URINE WBC 20-50 WBC/hpf (0-5)
[2019-09-25 15:42] VITALS: BP 154/63
--- NOTE | 2019-09-25 16:00 | NUR ---
PT CONTINUES TO REST IN THE BED WITHOUT COMPLAINT OR EVIDENCE OF DISTRESS.
[2019-09-25 19:26] VITALS: BP 138/86
--- NOTE | 2019-09-25 19:35 | NUR ---
ASSESSMENT COMPLETED. NO IV SITE AND ORDER IS ON CHART. GENERALIZED BRUISING TO ALL EXTREMETIES AND LARGE BRUISE TO LEFT FOOT. PT. ABLE TO REPOSITION IN BED AND IS INCONTINENT OF LARGE AMOUNT OF URINE. DENIES NEEDS/PAIN. ENCOURAGED TO CALL FOR ANY NEEDS. CALL LIGHT IS IN REACH. WILL CONTINUE TO MONITOR.
--- NOTE | 2019-09-25 21:20 | NUR ---
SCHEDULED MEDS GIVEN ALONG WITH PRN ROPINEROLE FOR REPORTS OF RESTLESS LEGS. PO FLUIDS OFFERED. ENCOURAGED TO CLAL FOR ANY NEEDS. CALL LIGHT IS IN REACH.
--- NOTE | 2019-09-26 | NUR ---
RESTING IN BED WITH EYES CLOSED; RESP. EVEN AND UNLABORED.
--- NOTE | 2019-09-26 01:35 | NUR ---
INCONTINENT OF LARGE AMOUNT OF URINE. CBB AND LINEN CHANGED. PT. ABLE TO PULL HERSELF UP IN BED. PO FLUIDS OFFERED. CALL LIGHT IS IN REACH. WILL CONTINUE TO MONITOR.
[2019-09-26 03:00] VITALS: BP 107/68
--- NOTE | 2019-09-26 03:04 | NUR ---
PT. CLEANED OF AN INCONTINENCE OF URINE AND NEW PAD APPLIED. VSS. CALL LIGHT IS IN REACH.
[2019-09-26 04:00] VITALS: BP 144/74
[2019-09-26 05:24] LABS: HEMOGLOBIN 11.6 g/dl (12.0-16.0); IMMATURE GRANULOCYTES 0.4 % (0.0-5.0); MEAN CELL VOLUME 89.6 fL CALC (80.0-100.0); MEAN CORPUSCULAR HGB 28.1 pG CALC (26.0-32.0); MEAN CORPUSCULAR HGB CONC 31.4 g/L CALC (32.0-36.0); NEUT# 6.76 thou/uL (2.00-7.15); RED BLOOD COUNT 4.13 mill/uL (4.20-5.60); RED CELL DISTRI WIDTH 15.3 % (11.5-15.5)
[2019-09-26 05:32] LABS: ANION GAP 14 (6-22 (CALC)); BUN 27 mg/dL (8-23); BUN/CREATININE RATIO 33 (12-20 (CALC)); CARBON DIOXIDE 27 mmol/l (22-30); CHLORIDE 100 mmol/l (95-108); CREATININE 0.8 mg/dL (0.5-1.0); GFR > 60 ML/MIN (>=60 (CALC)); GFR FOR AFR.AMER. > 60 ML/MIN (>=60 (CALC)); MAGNESIUM 1.9 mg/dL (1.6-2.3); POTASSIUM 4.2 mmol/l (3.5-5.1); SODIUM 136 mmol/l (137-146)
--- NOTE | 2019-09-26 06:02 | NUR ---
RESTING IN BED WITH NO DISTRESS NOTED WITH EYES CLOSED; RESP. EVEN AND UNLABORED. CALL LIGHT IS IN REACH.
--- NOTE | 2019-09-26 08:00 | NUR ---
PT IS AWAKE, ALERT, ORIENTED, ALTHOUGH SLIGHTLY CONFUSED. LUNGS ARE SLIGHTLY WHEEZY IN ALL LOBES, NOT OVERT, RA. SKIN INTACT ALTHOUGH BRUISING NOTED TO LEFT FOOT AND ARM. NO COMPLAINT OF PAIN.
--- NOTE | 2019-09-26 12:00 | NUR ---
PT RESTING IN THE BED WHEN CHECKED, STATES THAT SHE HAS NOT GOTTEN MUCH SLEEP AT ALL SINCE IN HOSPITAL. PT AWARE OF UTI FINDING.
--- NOTE | 2019-09-26 16:00 | NUR ---
PT BEFORE, NO CHANGE IN STATUS OBSERVED.
[2019-09-26 16:38] VITALS: BP 126/65
[2019-09-26 19:03] VITALS: BP 136/72
--- NOTE | 2019-09-26 20:28 | NUR ---
PT. SITTING UP WATCHING TV. NO DISTRESS NOTED; DENIES NEEDS/PAIN. VOICES NO CONCERNS. GENERALIZED BRUISING NOTED TO ALL EXTREMETIES; SKIN INTACT. ASSESSMENT COMPLETED. SCHED MEDS GIVEN. UPDATED ON POC. CALL LIGHT IS IN REACH. WILL CONTINUE TO MONITOR.
--- NOTE | 2019-09-27 00:54 | NUR ---
PT. CLEANED OF A BM AND INCONTINENCE OF URINE. CBB AND LINEN CHANGE COMPLETED. PT. ABLE TO PULL HERSELF UP IN BED AND ASSIT WITH REPOSITIONING. PO FLUIDS OFFERED. VOICES NO CONCERNS.ASSISTED ONTO BED MAHARAJ AND INSTRUCTED TO CALL WHEN FINISHED. CALL LIGHT IS IN REACH.
[2019-09-27 03:40] VITALS: BP 126/75
--- NOTE | 2019-09-27 03:43 | NUR ---
VS OBTAINED AND VSS. NO DISTRESS NOTED; VOICES NO CONCERNS. CALL LIGHT IS IN REACH.
--- NOTE | 2019-09-27 04:58 | NUR ---
PT. C/O INDIGESTION AND MEDICATED WITH ORDERD GI COCKTAIL; WILL REASSESS.
--- NOTE | 2019-09-27 05:50 | NUR ---
PT. CLEANED OF AN INCONTINENCE OF URINE, NEW PADS, GOWN, AND DRAW SHEET APPLIED. PT. ABLE TO PULL HERSELF UP IN BED. DENIES FURTHER NEEDS. CALL LIGHT IS IN REACH. WILL CONTINUE TO MONITOR.
[2019-09-27 07:50] VITALS: BP 126/73
--- NOTE | 2019-09-27 07:50 | NUR ---
ASSESSMENT IS COMPLETED: HR ISR EG,PULSES ARE STRONG X4, ABD IS SOFT WITH ACTIVE BS. BREATH SOUNDS ARE CLEAR BILATERALLY, NO C/O SOB. ONLY OF INDIGESTION. PT RECEIVED GI COCTAIL PRIOR TO MY ARRIVAL. PT HAS A BRUISE NOTED ON LEFT FOOT.
[2019-09-27 11:16] VITALS: BP 146/81
--- NOTE | 2019-09-27 12:03 | NUR ---
PT WAS SEEN THIS MORNING FOR FUNCTIONAL ACTIVITY. ATTEMPTED TRANSFERS HOWEVER SHE WAS UNABLE TO STAND FROM SITTING ON EOB DESPITE ELEVATING THE BED TO ASSIST IN STANDING. SHE ALSO NEEDED MIN A TO ROLL, SCOOT AND LIFT B LE FROM AND TO THE BED. MULTIPLE ATTEMPTS WERE DONE TO [id number] W/O SUCCESS. AMPAC IS UNCHANGED, PT WILL BENEFIT FROM CONDITIONING AND STRENGTHENING IN AN IN-PT REHAB OR FROM HOME HEALTH P.T. IF WITH SUPPORT/ASSIST FROM FAMILY.
[2019-09-27] MEDS ORDERED: CEPHALEXIN500 MG PO (12:48)
[2019-09-27] MEDS ORDERED: LOPRESSOR25 MG PO (12:49)
--- NOTE | 2019-09-27 12:50 | NUR ---
PT HAS BEEN RELAXING IN BED WITH MO DISTRESS NOTED. CONTINUE TO OSEBRVE AND MONITOR.
[2019-09-27 16:36] VITALS: BP 111/59
--- NOTE | 2019-09-27 16:45 | NUR ---
PT IS RELAXIGN IN BED WITH NO DISTRESS NOTED. CONTINUE TO OSBERVE AND MONITOR
[2019-09-27 19:11] VITALS: BP 120/71
--- NOTE | 2019-09-27 19:50 | NUR ---
PT WAS OBSERVED GOING BACK TO HER ROOM IN A WC WITH FAMILY. INQUIRED WHERE SHE WENT. WAS INFORMED BY PT " I WENT TO MY [facility] TO SMOKE , I HAVE BEEN HERE A WEEK AND NO CIGARETTES." INFORMED PT OF A NON SMOKING FACILITY. WAS VERY SURPRISED THAT PT WAS FOUND IN HER WC. PT STATED" I KNOW THIS IS A NON SMOKING FACILTY , THATS WHY I WENT IN MY VAN," HER COUSIN IN THE ROOM. STATED" OK WE WILL LET SOMEONE KNOW NEXT TIME" THE NIGHT TIME NURSE IN THE ROOM.
--- NOTE | 2019-09-27 22:00 | NUR ---
PT ASSISTED TO BSC AND MEDICATED ORDERS PROVIDE. PT SELF TRANSFERRED TO BSC FROM BED W/STANDBY ASSIST ONLY. PT ASKED TO SIT FOR AWHILE, CALL LIGHT PLACED W/IN REACH.
--- NOTE | 2019-09-27 22:12 | NUR ---
PT ASSISTED BACK TO BED, PT VERY WEAK AMBULATING, NEEDED ASSISTANCE GETTING FROM BSC TO BED/1 PIVOT DISTANCE. TALKED W/PT ABOUT ABILITY AMBULATING REGARDING HER ABILITY EARLIER TO SELF AMBULATE INTO WHEELCHAIR TO GO OUT AND SMOKE AND ABILITY TO SELF AMBULATE BACK INTO THE BED AT THAT TIME. WE ALSO TALKED W/PT REGARDING DIET/DIABETES AND ATTEMPTED TO EDUCATE. PT IS NON-COMPLIANT, DEFENSIVE AND STATES "I AM 63 YO AND CAN EAT HOW I WANT." PT HAS LARGE SODA'S AND TWO DOZEN DONUTS AND TWO BAGS OF CHIPS SITTING AT BEDSIDE.
--- NOTE | 2019-09-27 23:45 | NUR ---
PT PLACED ON BEDPAN, SHE APPEARED TOO UNSTEADY AND WEAK ON HER FEET PREVIOUS ATTEMPT TO GETTING TO AND FROM BSC. PT AGREED.
--- NOTE | 2019-09-28 03:00 | NUR ---
PT ASSISTED TO BEDPAN, TOLERATED WELL.
[2019-09-28 04:00] VITALS: BP 137/81
--- NOTE | 2019-09-28 05:36 | NUR ---
PT SLEEPING W/LIGHTS AND TV ON. NO S/O DISTRESS NOTED.
--- NOTE | 2019-09-28 07:00 | NUR ---
REPORT FROM HALEIGH STEVENSON. PT RESTING IN BED. NO APPARENT DISTRESS NOTED. PT DENIES ANY CURRENT WANTS OR NEEDS. NO IV SITE OR SALES ENGINEER ENGINEERED PRODUCTS PRESENT. DISCUSSED POC. PT VERBALIZED UNDERSTANDING. CALL LIGHT WITHIN REACH. WILL CONTINUE TO MONITOR.
--- NOTE | 2019-09-28 07:00 | NUR ---
REPORT FROM HALEIGH STEVENSON. PT RESTING IN BED. NO APPARENT DISTRESS NOTED. PT DENIES ANY CURRENT WANTS OR NEEDS. IV SITE APPEARS HEALTHY. DISCUSSED POC. PT VERBALIZED UNDERSTANDING. CALL LIGHT WITHIN REACH. WILL CONTINUE TO MONITOR.
--- NOTE | 2019-09-28 07:42 | NUR ---
PT ASSISTED OFF BED PAIN. PT VOIDED UNMEASURABLE AMOUNT IN SPILLED ON BED. PERICARE AND LINENS CHANGED AT THIS TIME. PT DENIES ANY FURTHER WANTS OR NEEDS. CALL LIGHT WITHIN REACH. WILL CONTINUE TO MONITOR.
[2019-09-28 07:43] VITALS: BP 121/76
[2019-09-28 08:11] VITALS: BP 121/76
--- NOTE | 2019-09-28 10:24 | NUR ---
Pt. reported she did not feel well enough to participate in physical therapy, attending nurse informed of same.
--- NOTE | 2019-09-28 11:45 | NUR ---
RECYCLING SPECIALIST SPOKE WITH CONCEPCIÓN FROM SIGNITURE REGARDING DISCHARGE OF PT.
--- NOTE | 2019-09-28 15:14 | NUR ---
Discharge instructions given. Patient verbalizes understanding of same. Discharged in stable condition via Wheelchair to [facility] with staff. All belongings sent with pt.
== END 2019-09-28 15:14 | DRG 556 ==
LOC: ED 19:50 → ED-I 21:41 → ED 21:57 → MS2 21:58
PROVIDERS: Nurse Practitioner Family; ADMIT Internal Medicine; ATTEND Internal Medicine
DX: M62.81 Muscle weakness (generalized) (principal); Z68.41 Body mass index [BMI] 40.0-44.9, adult; N39.0 Urinary tract infection, site not specified; E11.42 Type 2 diabetes mellitus with diabetic polyneuropathy; R53.83 Other fatigue; I10 Essential (primary) hypertension; J44.9 Chronic obstructive pulmonary disease, unspecified; F17.210 Nicotine dependence, cigarettes, uncomplicated; E66.01 Morbid (severe) obesity due to excess calories; F32.9 Major depressive disorder, single episode, unspecified; R00.0 Tachycardia, unspecified; K21.9 Gastro-esophageal reflux disease without esophagitis; F41.9 Anxiety disorder, unspecified; B96.20 Unspecified Escherichia coli [E. coli] as the cause of diseases classified elsewhere; Z91.81 History of falling; Z79.4 Long term (current) use of insulin; M79.605 Pain in left leg; W19.XXXA Unspecified fall, initial encounter; M79.604 Pain in right leg; E11.40 Type 2 diabetes mellitus with diabetic neuropathy, unspecified; G89.4 Chronic pain syndrome; S80.02XA Contusion of left knee, initial encounter; S80.01XA Contusion of right knee, initial encounter; S40.021A Contusion of right upper arm, initial encounter; S40.022A Contusion of left upper arm, initial encounter; F17.200 Nicotine dependence, unspecified, uncomplicated
CPT/HCPCS: J1650

== ENCOUNTER 2019-11-23 | Emergency (ER) | payer MEDICARE ==
[~2019-11-23] MED LIST changes: +CEPHALEXIN500 MG PO; +LOPRESSOR25 MG PO; +MULTIVITAMI1 PO
[2019-11-23 21:22] LABS: HEMATOCRIT 36.8 % (37.0-47.0); HEMOGLOBIN 11.6 g/dl (12.0-16.0); IMMATURE GRANULOCYTES 0.5 % (0.0-5.0); MEAN CORPUSCULAR HGB 25.6 pG CALC (26.0-32.0); MEAN CORPUSCULAR HGB CONC 31.5 g/L CALC (32.0-36.0); NEUT# 6.63 thou/uL (2.00-7.15); RED BLOOD COUNT 4.53 mill/uL (4.20-5.60); RED CELL DISTRI WIDTH 14.6 % (11.5-15.5)
[2019-11-23 21:23] LABS: MEAN CELL VOLUME 81.2 fL CALC (80.0-100.0)
[2019-11-23 21:37] LABS: ACT PARTIAL THROMBO TIME 27.6 SECONDS (20.0-32.5); CPK 427 u/l (30-165); ETHYL ALCOHOL 0 mg/dl (0-30); LIPASE 36 u/l (23-300); MAGNESIUM 1.7 mg/dL (1.6-2.3); PROTHROMBIN TIME 10.6 SECONDS (9.0-12.5)
[2019-11-23 21:40] LABS: AMYLASE < 30 u/l (30-110)
[2020-05-25] MEDS ORDERED: TORADOL PO (22:04)
== END 2019-11-23 22:30 | disposition left against medical advice (07) ==
DX: E11.42 Type 2 diabetes mellitus with diabetic polyneuropathy (principal); I10 Essential (primary) hypertension; M79.7 Fibromyalgia; F17.210 Nicotine dependence, cigarettes, uncomplicated; Z91.14 Patient's other noncompliance with medication regimen; Z91.19 Patient's noncompliance with other medical treatment and regimen
CPT/HCPCS: J2060

== ENCOUNTER 2020-05-25 19:39 | Emergency (ER) | payer MEDICARE ==
[~2020-05-25] VITALS: Ht 170.2 cm; Wt 118.0 kg
[2020-05-25 20:58] LABS: HEMATOCRIT 38.1 % (37.0-47.0); HEMOGLOBIN 11.9 g/dl (12.0-16.0); IMMATURE GRANULOCYTES 0.1 % (0.0-5.0); MEAN CORPUSCULAR HGB 25.9 pG CALC (26.0-32.0); MEAN CORPUSCULAR HGB CONC 31.2 g/dL CAL (32.0-36.0); NEUT# 4.71 thou/uL (2.00-7.15); RED BLOOD COUNT 4.59 mill/uL (4.20-5.60); RED CELL DISTRI WIDTH 14.4 % (11.5-15.5)
[2020-05-25 21:10] LABS: ALBUMIN 3.3 g/dL (3.2-5.0); ALKALINE PHOSPHATASE 107 u/l (38-126); ANION GAP 10 (6-22 (CALC)); BILIRUBIN, TOTAL 0.5 mg/dL (0.0-1.4); BUN 12 mg/dL (8-23); BUN/CREATININE RATIO 15 (12-20 (CALC)); CARBON DIOXIDE 26 mmol/l (22-30); CHLORIDE 100 mmol/l (95-108); CREATININE 0.8 mg/dL (0.5-1.0); GFR > 60 ML/MIN (>=60 (CALC)); GFR FOR AFR.AMER. > 60 ML/MIN (>=60 (CALC)); POTASSIUM 3.4 mmol/l (3.5-5.1); SGOT/AST 24 u/l (9-36); SODIUM 133 mmol/l (137-146); TOTAL PROTEIN 6.1 g/dL (6.3-8.2)
[2020-05-25 22:00] VITALS: BP 106/54
[2020-05-25] MEDS ORDERED: TORADOL PO ×2 (22:04)
== END 2020-05-25 22:40 | disposition home or self-care (01) ==
LOC: ED 19:39
PROVIDERS: Family Medicine
DX: S39.012A Strain of muscle, fascia and tendon of lower back, initial encounter (principal); I10 Essential (primary) hypertension; E11.9 Type 2 diabetes mellitus without complications; M79.7 Fibromyalgia; F17.200 Nicotine dependence, unspecified, uncomplicated; X50.0XXA Overexertion from strenuous movement or load, initial encounter

== ENCOUNTER 2020-07-10 20:24 | Observation (INO) | payer MEDICARE ==
[~2020-07-10] VITALS: Ht 170.2 cm; Wt 104.0 kg
[~2020-07-10 20:24] MED LIST changes: +TORADOL PO
[2020-07-10] MEDS ORDERED: GABAPENTIN100 MG PO (21:10)
[2020-07-10] MEDS ORDERED: ROPINIROLE0.5 MG PO (21:11)
[2020-07-10] MEDS ORDERED: METFORMIN HYDR850 MG PO (21:11)
[2020-07-10 21:23] LABS: HEMATOCRIT 38.6 % (37.0-47.0); HEMOGLOBIN 11.5 g/dl (12.0-16.0); IMMATURE GRANULOCYTES 0.4 % (0.0-5.0); MEAN CELL VOLUME 80.2 fL CALC (80.0-100.0); MEAN CORPUSCULAR HGB 23.9 pG CALC (26.0-32.0); MEAN CORPUSCULAR HGB CONC 29.8 g/dL CAL (32.0-36.0); NEUT# 6.45 thou/uL (2.00-7.15); RED BLOOD COUNT 4.81 mill/uL (4.20-5.60); RED CELL DISTRI WIDTH 14.1 % (11.5-15.5)
[2020-07-10 21:43] LABS: ALBUMIN 3.5 g/dL (3.2-5.0); ALKALINE PHOSPHATASE 131 u/l (38-126); ANION GAP 12 (6-22 (CALC)); BILIRUBIN, TOTAL 0.5 mg/dL (0.0-1.4); BUN 9 mg/dL (8-23); BUN/CREATININE RATIO 13 (12-20 (CALC)); CARBON DIOXIDE 25 mmol/l (22-30); CHLORIDE 102 mmol/l (95-108); CPK 68 u/l (30-165); CREATININE 0.7 mg/dL (0.5-1.0); GFR > 60 ML/MIN (>=60 (CALC)); GFR FOR AFR.AMER. > 60 ML/MIN (>=60 (CALC)); MAGNESIUM 1.8 mg/dL (1.6-2.3); POTASSIUM 3.4 mmol/l (3.5-5.1); SGOT/AST 19 u/l (9-36); SODIUM 135 mmol/l (137-146); TOTAL PROTEIN 6.3 g/dL (6.3-8.2)
[2020-07-10 21:56] LABS: MYOGLOBIN 97 ng/mL (0 - 62)
[2020-07-10 22:13] LABS: TSH, 3RD GENERATION 2.14 uIU/mL (0.47 - 4.68)
[2020-07-11 02:10] VITALS: BP 144/62
[2020-07-11 05:12] VITALS: BP 135/71
[2020-07-11 07:35] LABS: URINE BILIRUBIN - DIPSTICK NEGATIVE (NEGATIVE); URINE BLOOD DIPSTICK TRACE-INTACT (NEGATIVE); URINE COLOR YELLOW; URINE GLUCOSE - DIPSTICK NEGATIVE (NEGATIVE); URINE KETONE NEGATIVE (NEGATIVE); URINE PROTEIN - DIPSTICK NEGATIVE (NEG-TRACE); URINE UROBILINOGEN - DIPSTICK 0.2 E.U./dL (0.2)
[2020-07-11 07:38] LABS: URINE LEUK ESTERASE SMALL (NEGATIVE)
[2020-07-11 07:47] LABS: URINE EPITHELIAL CELLS FEW EPI/hpf (0-FEW); URINE NITRITE - DIPSTICK NEGATIVE (Negative)
[2020-07-11 07:48] LABS: URINE BACTERIA RARE hpf
[2020-07-11 08:02] VITALS: BP 148/89
[2020-07-11 14:55] VITALS: BP 120/72
[2020-07-11 18:48] VITALS: BP 104/61
[2020-07-12 04:53] LABS: HEMATOCRIT 38.5 % (37.0-47.0); HEMOGLOBIN 11.5 g/dl (12.0-16.0); MEAN CELL VOLUME 81.4 fL CALC (80.0-100.0); MEAN CORPUSCULAR HGB 24.3 pG CALC (26.0-32.0); MEAN CORPUSCULAR HGB CONC 29.9 g/dL CAL (32.0-36.0); RED BLOOD COUNT 4.73 mill/uL (4.20-5.60); RED CELL DISTRI WIDTH 14.3 % (11.5-15.5)
[2020-07-12 05:00] VITALS: BP 126/78; BP 141/86
[2020-07-12 05:11] LABS: ALBUMIN 3.2 g/dL (3.2-5.0); ALKALINE PHOSPHATASE 126 u/l (38-126); ANION GAP 10 (6-22 (CALC)); BILIRUBIN, TOTAL 0.6 mg/dL (0.0-1.4); BUN 11 mg/dL (8-23); BUN/CREATININE RATIO 14 (12-20 (CALC)); CARBON DIOXIDE 27 mmol/l (22-30); CHLORIDE 102 mmol/l (95-108); CREATININE 0.8 mg/dL (0.5-1.0); GFR > 60 ML/MIN (>=60 (CALC)); GFR FOR AFR.AMER. > 60 ML/MIN (>=60 (CALC)); SGOT/AST 23 u/l (9-36); SODIUM 135 mmol/l (137-146)
[2020-07-12 05:25] LABS: POTASSIUM 4.2 mmol/l (3.5-5.1)
[2020-07-12 07:35] VITALS: BP 141/78
[2020-07-12 10:08] LABS: URINE BILIRUBIN - DIPSTICK NEGATIVE (NEGATIVE); URINE BLOOD DIPSTICK NEGATIVE (NEGATIVE); URINE CLARITY CLEAR; URINE COLOR YELLOW; URINE GLUCOSE - DIPSTICK NEGATIVE (NEGATIVE); URINE KETONE NEGATIVE (NEGATIVE); URINE LEUK ESTERASE TRACE (Negative); URINE NITRITE - DIPSTICK NEGATIVE (Negative); URINE PROTEIN - DIPSTICK NEGATIVE (NEG-TRACE)
== END 2020-07-12 13:14 | disposition home health service (06) ==
LOC: ED 20:24 → ED-I 23:40 → ED 23:53 → MS2 23:54
PROVIDERS: Family Medicine; Nurse Practitioner Family; ADMIT Internal Medicine; ATTEND Internal Medicine
DX: R53.1 Weakness (principal); E87.6 Hypokalemia; N39.0 Urinary tract infection, site not specified; E11.42 Type 2 diabetes mellitus with diabetic polyneuropathy; I10 Essential (primary) hypertension; R25.2 Cramp and spasm; M79.7 Fibromyalgia; E66.01 Morbid (severe) obesity due to excess calories; G25.81 Restless legs syndrome; F17.200 Nicotine dependence, unspecified, uncomplicated; Z91.81 History of falling; Z60.2 Problems related to living alone; Z68.35 Body mass index [BMI] 35.0-35.9, adult; Z79.84 Long term (current) use of oral hypoglycemic drugs; Z99.3 Dependence on wheelchair; Z20.828 Contact with and (suspected) exposure to other viral communicable diseases
CPT/HCPCS: G0378; J1650

== ENCOUNTER 2020-08-20 00:56 | Emergency (ER) | payer MEDICARE ==
[~2020-08-20] VITALS: Ht 170.2 cm; Wt 109.1 kg
[~2020-08-20 00:56] MED LIST changes: +METFORMIN HYDR850 MG PO
[2020-08-20 01:56] LABS: HEMATOCRIT 43.1 % (37.0-47.0); HEMOGLOBIN 13.4 g/dl (12.0-16.0); IMMATURE GRANULOCYTES 0.2 % (0.0-5.0); MEAN CELL VOLUME 77.7 fL CALC (80.0-100.0); MEAN CORPUSCULAR HGB 24.1 pG CALC (26.0-32.0); MEAN CORPUSCULAR HGB CONC 31.1 g/dL CAL (32.0-36.0); NEUT# 6.69 thou/uL (2.00-7.15); RED BLOOD COUNT 5.55 mill/uL (4.20-5.60); RED CELL DISTRI WIDTH 14.3 % (11.5-15.5)
[2020-08-20 02:38] LABS: ALBUMIN 4.2 g/dL (3.2-5.0); ALKALINE PHOSPHATASE 146 u/l (38-126); ANION GAP 15 (6-22 (CALC)); BILIRUBIN, TOTAL 0.9 mg/dL (0.0-1.4); BUN 8 mg/dL (8-23); BUN/CREATININE RATIO 10 (12-20 (CALC)); CARBON DIOXIDE 24 mmol/l (22-30); CHLORIDE 101 mmol/l (95-108); CPK 178 u/l (30-165); CREATININE 0.8 mg/dL (0.5-1.0); GFR > 60 ML/MIN (>=60 (CALC)); GFR FOR AFR.AMER. > 60 ML/MIN (>=60 (CALC)); MAGNESIUM 1.7 mg/dL (1.6-2.3); POTASSIUM 3.7 mmol/l (3.5-5.1); SGOT/AST 38 u/l (9-36); SODIUM 137 mmol/l (137-146); TOTAL PROTEIN 7.6 g/dL (6.3-8.2)
[2020-08-20 03:14] LABS: URINE BILIRUBIN - DIPSTICK NEGATIVE (NEGATIVE); URINE BLOOD DIPSTICK NEGATIVE (NEGATIVE); URINE COLOR YELLOW; URINE GLUCOSE - DIPSTICK NEGATIVE (NEGATIVE); URINE KETONE NEGATIVE (NEGATIVE); URINE LEUK ESTERASE NEGATIVE (NEGATIVE); URINE NITRITE - DIPSTICK NEGATIVE (Negative); URINE PH 6.5 (4.5-8.0); URINE PROTEIN - DIPSTICK TRACE mg/dL (NEG-TRACE); URINE SPECIFIC GRAVITY 1.015; URINE UROBILINOGEN - DIPSTICK 0.2 E.U./dL (0.2)
[2020-08-20] MEDS ORDERED: ROPINIROLE3 MG PO (03:24)
[2020-08-20] MEDS ORDERED: GABAPENTIN600 MG PO (03:24)
[2020-08-20 03:48] VITALS: BP 176/97
== END 2020-08-20 03:48 | disposition home or self-care (01) ==
LOC: ED 00:56
PROVIDERS: Family Medicine
DX: R25.2 Cramp and spasm (principal); I10 Essential (primary) hypertension; E11.9 Type 2 diabetes mellitus without complications; E66.01 Morbid (severe) obesity due to excess calories; F17.200 Nicotine dependence, unspecified, uncomplicated; T50.906A Underdosing of unspecified drugs, medicaments and biological substances, initial encounter; Z91.128 Patient's intentional underdosing of medication regimen for other reason; Z79.84 Long term (current) use of oral hypoglycemic drugs